=== PATIENT | female | born 1960 | race Caucasian/White ===

== ENCOUNTER 2022-04-11 06:20 | Inpatient (IN) | payer MEDICAID ==
[~2022-04-11] VITALS: Ht 152.4 cm; Wt 52.6 kg
[2022-04-11] VITALS (19 sets, daily range): BP systolic 92–164; BP diastolic 57–89
[2022-04-11] MEDS ORDERED: HEPARIN 1000 UNITS/ML 10ML ONE (07:15)
[2022-04-11] MEDS ORDERED: IODIXANOL 320MG/ML 100 ML BOTTLE IV ONE (07:15)
[2022-04-11] MEDS ORDERED: LIDOCAINE HCL/PF 1% 10 MG/ML 5ML VIAL ONE (07:16)
[2022-04-11] MEDS ORDERED: ASPIRIN/SOD BICARB/CITRIC ACID 324MG TAB EFF ONE (07:21)
[2022-04-11] MEDS ORDERED: ATOR-2 PO (07:38)
[2022-04-11] MEDS ORDERED: VERA120T23 PO (07:38)
[2022-04-11] MEDS ORDERED: METF-873 PO (07:38)
[2022-04-11 08:08] LABS: BASOPHILS % 0.6 % (0.0-2.0); EOSINOPHILS % 1.5 % (0.0-5.0); HEMATOCRIT. 36.6 % (36.0-48.0); HEMOGLOBIN. 12.3 g/dL (12.0-16.0); LYMPHOCYTES % 25.7 % (20.0-50.0); MEAN CORPUSCULAR HEMOGLOBIN 29.8 pg (28.0-32.0); MEAN CORPUSCULAR VOLUME 88.7 fL (81.0-99.0); MEAN PLATELET VOLUME 8.2 fl (7.4-10.4); NEUTROPHILS % 66.2 % (40.0-76.0); PLATELET 381 x1000/uL (130-400); RED BLOOD CELL COUNT 4.13 mill/uL (4.2-5.4)
[2022-04-11] MEDS ORDERED: MIDAZOLAM HCL 2 MG/2 ML VIAL ONE (08:11)
[2022-04-11] MEDS ORDERED: FENTANYL CITRATE/PF 50MCG/ML 2ML VIAL ONE (08:11)
[2022-04-11 08:17] LABS: PROTHROMBIN TIME 10.4 sec (9.6-11.0)
[2022-04-11] MEDS ORDERED: CLOPIDOGREL 75MG TABLET ONE (08:55)
[2022-04-11 09:04] LABS: CHLORIDE 106 mEq/L (98-107)
[2022-04-11] MEDS ORDERED: ONDANSETRON HCL 4MG/2ML INJ IV PRN (09:15)
[2022-04-11] MEDS ORDERED: ACETAMINOPHEN 325MG TABLET PO PRN (09:15)
[2022-04-11] MEDS ORDERED: MORPHINE SULFATE 2 MG/ML CPJ (NOT FOR IM USE) IV PRN (09:15)
[2022-04-11] MEDS ORDERED: CLOPIDOGREL 75MG TABLET PO ONE (09:15)
[2022-04-11] MEDS ORDERED: DEXTROSE 50% WATER 50ML SYRINGE IV PRN (09:30)
[2022-04-11] MEDS ORDERED: SODIUM CHLORIDE 0.45% 1,000 ML IV ONE (10:00)
[2022-04-11] MEDS ORDERED: NALOXONE HCL 0.4MG/ML VIAL IV PRN (10:00)
[2022-04-11] MEDS ORDERED: POTASSIUM CHLORIDE 20MEQ/PACKET PO NR (10:30)
[2022-04-11] MEDS: BLOOD SUGAR DIAGNOSTIC STRIP TEST SCH ×3 (11:42→21:04)
[2022-04-11] MEDS: INSULIN LISPRO 100 UNITS/ML SUBCUT SCH ×3 (11:42→21:04)
[2022-04-11 13:06] LABS: HEPATITIS B SURFACE ANTIGEN NEGATIVE
[2022-04-11] MEDS: METOPROLOL TARTRATE 25MG TABLET PO SCH (20:59)
[2022-04-11] MEDS: AMLODIPINE 2.5MG TABLET PO SCH (21:00)
[2022-04-11] MEDS ORDERED: ATORVASTATIN CALCIUM 40MG TABLET PO SCH (21:00)
[2022-04-12] VITALS: BP 147/73
[2022-04-12 04:00] VITALS: BP 140/84
[2022-04-12 07:06] LABS: BASOPHILS % 0.4 % (0.0-2.0); CHLORIDE 110 mEq/L (98-107); HEMATOCRIT. 32.5 % (36.0-48.0); HEMOGLOBIN. 11.3 g/dL (12.0-16.0); LYMPHOCYTES % 32.6 % (20.0-50.0); MEAN CORPUSCULAR HEMOGLOBIN 31.2 pg (28.0-32.0); MEAN CORPUSCULAR VOLUME 89.7 fL (81.0-99.0); MEAN PLATELET VOLUME 8.7 fl (7.4-10.4); PLATELET 340 x1000/uL (130-400); RED BLOOD CELL COUNT 3.62 mill/uL (4.2-5.4); RED CELL DISTRIBUTION WIDTH 13.2 % (11.6-14.6)
[2022-04-12] MEDS: BLOOD SUGAR DIAGNOSTIC STRIP TEST SCH (07:17)
[2022-04-12] MEDS: INSULIN LISPRO 100 UNITS/ML SUBCUT SCH (07:17)
[2022-04-12 08:12] VITALS: BP 172/87
[2022-04-12] MEDS: AMLODIPINE 2.5MG TABLET PO SCH (08:14)
[2022-04-12] MEDS: METOPROLOL TARTRATE 25MG TABLET PO SCH (08:15)
[2022-04-12 08:50] VITALS: BP 141/56
[2022-04-12] MEDS ORDERED: ASPIRIN 81MG TABLET PO SCH (09:00)
[2022-04-12] MEDS ORDERED: CLOPIDOGREL 75MG TABLET PO SCH (09:00)
[2022-04-12 09:42] VITALS: BP 141/56
[2022-04-12] MEDS ORDERED: VERAPAMIL HCL 40MG TABLET PO SCH (11:00)
== END 2022-04-12 18:50 | disposition home or self-care (01) | DRG 175 ==
LOC: CCL 06:20 → 3WST 09:58
PROVIDERS: ADMIT Specialist; ATTEND Specialist
PROC: 027034Z Dilation of Coronary Artery, One Artery with Drug-eluting Intraluminal Device, Percutaneous Approach (ICD-10-PCS; principal; 2022-04-11)
PROC: 4A023N7 Measurement of Cardiac Sampling and Pressure, Left Heart, Percutaneous Approach (ICD-10-PCS; 2022-04-11)
PROC: B211YZZ Fluoroscopy of Multiple Coronary Arteries using Other Contrast (ICD-10-PCS; 2022-04-11)
PROC: 4A033BC Measurement of Arterial Pressure, Coronary, Percutaneous Approach (ICD-10-PCS; 2022-04-11)
PROC: B215YZZ Fluoroscopy of Left Heart using Other Contrast (ICD-10-PCS; 2022-04-11)
DX: I25.10 Atherosclerotic heart disease of native coronary artery without angina pectoris (principal); I11.9 Hypertensive heart disease without heart failure; E78.5 Hyperlipidemia, unspecified; I34.0 Nonrheumatic mitral (valve) insufficiency; Z79.899 Other long term (current) drug therapy; Z79.84 Long term (current) use of oral hypoglycemic drugs
CPT/HCPCS: 36415; 80048; 82962; 83735; 85025; 85347; 86705; 86709; 86803; 87340; 92928; 93005; 93458; C1769; C1874; C1887; C1893; J1644; J1815; J2250; J3010; J3490; Q9967

== ENCOUNTER 2022-09-13 21:20 | Emergency (ER) | payer MEDICAID, OTHER ==
[~2022-09-13] VITALS: Ht 152.4 cm; Wt 53.3 kg
[~2022-09-13 21:20] MED LIST: AMLO10TA80 PO; ASPI-1406 PO; ATOR-2 PO; CLOP-31 PO; HYDR25TA PO; LOSA50TA41 PO; METF-873 PO; OLME40TA18 PO; VERA120T23 PO
[2022-09-13 22:35] VITALS: O2SAT 98
[2022-09-13 23:03] LABS: BASOPHILS % 0.7 % (0.0-2.0); EOSINOPHILS % 1.4 % (0.0-5.0); HEMOGLOBIN. 10.8 g/dL (12.0-16.0); LYMPHOCYTES % 29.4 % (20.0-50.0); MEAN CORPUSCULAR HEMOGLOBIN 30.3 pg (28.0-32.0); MEAN CORPUSCULAR VOLUME 89.6 fL (81.0-99.0); MEAN PLATELET VOLUME 8.1 fl (7.4-10.4); MONOCYTES % 6.2 % (2.0-8.0); NEUTROPHILS % 62.3 % (40.0-76.0); PLATELET 405 x1000/uL (130-400); RED BLOOD CELL COUNT 3.57 mill/uL (4.2-5.4); RED CELL DISTRIBUTION WIDTH 13.7 % (11.6-14.6)
[2022-09-13 23:17] LABS: PROTHROMBIN TIME 10.3 sec (9.6-11.0)
[2022-09-13 23:18] LABS: CHLORIDE 106 mEq/L (98-107)
[2022-09-14 03:00] VITALS: BP 120/71; PULSE 80; RESP 14; TEMP 98.6
== END 2022-09-14 03:01 | disposition home or self-care (01) ==
LOC: ER 21:20
DX: R60.0 Localized edema (principal); E11.9 Type 2 diabetes mellitus without complications; I10 Essential (primary) hypertension; Z98.890 Other specified postprocedural states
CPT/HCPCS: 80053; 83880; 85025; 85610; 36415; 99284; 93970; Z7610